=== PATIENT | female | born 1965 | race Caucasian/White ===

== ENCOUNTER 2023-01-16 13:12 | Outpatient (CLI) | payer BC ==
[2023-01-16 13:48] LABS: ALBUMIN 4.4 G/DL (3.4-5.0); ANION GAP 8 (8-16); CALCIUM 9.3 MG/DL (8.5-10.1); CHLORIDE 103 MMOL/L (99-107); CREATININE 0.89 MG/DL (0.40-0.90); GLUCOSE 95 MG/DL (70-104); POTASSIUM 3.5 MMOL/L (3.5-5.1); SODIUM 140 MMOL/L (135-145); TOTAL CARBON DIOXIDE 29.5 MMOL/L (24-32); eGFR 66 ML/MIN
[2023-01-16 13:52] LABS: BLOOD UREA NITROGEN 20 MG/DL (7-18); BUN/CREATININE RATIO 22.5 (6.6-38.0)
== END 2023-01-16 23:59 | disposition home or self-care (01) ==
LOC: LAB 13:12
PROVIDERS: ATTEND Orthopaedic Surgery
DX: R94.4 Abnormal results of kidney function studies (principal)
CPT/HCPCS: 36415; 80048

== ENCOUNTER 2023-01-24 09:46 | Outpatient (CLI) | payer BC ==
[2023-01-24] MEDS ORDERED: GADOTERATE MEGLUMINE 7.5 MMOL/15 ML VIAL IV ONE (12:30)
== END 2023-01-24 23:59 | disposition home or self-care (01) ==
LOC: RAD 09:46 → EDUNIT# 10:00 → RAD 23:59
PROVIDERS: ATTEND Orthopaedic Surgery
DX: M87.051 Idiopathic aseptic necrosis of right femur (principal); M16.7 Other unilateral secondary osteoarthritis of hip; M16.11 Unilateral primary osteoarthritis, right hip; M25.451 Effusion, right hip; M89.8X5 Other specified disorders of bone, thigh
CPT/HCPCS: 73723; A9575

== ENCOUNTER 2024-07-08 14:28 | Outpatient (CLI) | payer BC | END 2024-07-08 23:59 | disposition home or self-care (01) | LOC: MRI 14:28 | PROVIDERS: ATTEND Podiatrist | DX: M19.071 Primary osteoarthritis, right ankle and foot (principal); M20.41 Other hammer toe(s) (acquired), right foot; G57.61 Lesion of plantar nerve, right lower limb | CPT/HCPCS: 73718 ==